=== PATIENT | female | born 1950 | race Caucasian/White ===

== ENCOUNTER 2024-09-23 10:14 | Emergency (ER) | payer MEDICARE ==
[~2024-09-23] VITALS: Ht 157.5 cm; Wt 63.5 kg
[2024-09-23 11:08] LABS: CREATININE 0.9 mg/dL (0.5-1.0); POTASSIUM 4.2 mmol/L (3.5-5.1)
[2024-09-23 11:19] LABS: BASOPHILS # (AUTO) 0.03 K/uL (0.00-0.20); BASOPHILS % (AUTO) 0.4 % (0.0-5.0); EOSINOPHILS # (AUTO) 0.07 K/uL (0.00-0.70); HEMATOCRIT 43.1 % (36-48); IMMATURE GRANULOCYTE ABSOLUTE 0.03 K/uL (0-1); LYMPHOCYTES # (AUTO) 1.9 K/uL (1.0-4.8); LYMPHOCYTES % (AUTO) 27.4 % (21.0-51.0); MEAN CORPUSCULAR HEMOGLOBIN 27.5 pg (27.0-33.0); MEAN CORPUSCULAR HGB CONC 32.7 g/dL (32.0-36.0); MEAN CORPUSCULAR VOLUME 84.2 fL (79-99); MONOCYTES # (AUTO) 0.4 K/uL (0.1-1.0); MONOCYTES % (AUTO) 6.1 % (3.0-13.0); NEUTROPHILS # (AUTO) 4.5 K/uL (1.8-7.7); NEUTROPHILS % (AUTO) 64.7 % (40.0-77.0); PLATELET COUNT (AUTO) 265 K/uL (130-400); RED BLOOD CELL COUNT(AUTO) 5.12 MIL/uL (4.00-5.50); WHITE BLOOD COUNT (AUTO) 6.9 K/uL (4.8-10.8)
[2024-09-23 11:42] VITALS: BP 163/84; TEMP 98.8; O2SAT 99
[2024-09-23 11:45] LABS: COVID19 (SARS ANTIGEN RAPID) PRESUMPTIVE NEGATIVE (NEGATIVE); INFLUENZA TYPE A Negative For Type A (NEGATIVE); INFLUENZA TYPE B Negative For Type B (NEGATIVE)
--- NOTE | 2024-09-23 12:29 | ERN ---
ED Note History of Present Illness Stated Complaint: CHEST CONGESTION, COUGHING Chief Complaint: Cough Time Seen by MD: 10:23 Dictation: 74-year-old female presents to the ED for evaluation of cough onset 4 days ago. Patient reports congestion, wheezing and chest pain, but denies any other associated symptoms at this time. Patient mentioned she was diagnosed with bronchitis on Saturday and treated at the urgent care with antibiotics and steroids, stating she was feeling better until last night when symptoms returned. Allergies: Coded Allergies: clarithromycin (Unverified Allergy, Unknown, NAUSEA/VOMITING, 09/23/24) erythromycin base (Unverified Allergy, Unknown, NAUSEA/VOMITING, 09/23/24) levofloxacin (Unverified Allergy, Unknown, HEADACHE, 09/23/24) moxifloxacin (Unverified Allergy, Unknown, HEADACHE, 09/23/24) sulfamethoxazole (Unverified Allergy, Unknown, ITCHING, 09/23/24) trimethoprim (Unverified Allergy, Unknown, ITCHING, 09/23/24) Past Medical History Past Medical History: Anxiety, Asthma, Bronchitis, Cancer, High Cholesterol, Hypertension, Pneumonia Surgical History: Review of System Dictation Constitutional: Negative for fever,chills, and weight loss Eyes: Negative for injury, pain,redness, and discharge ENT: Positive for nasal congestion Negative for injury,pain or swelling Cardiovascular: Positive for chest pain negative for palpitations, and edema Respiratory: Positive for cough and wheezing Negative for shortness of breath Abdomen/GI: Negative for abdominal pain, nausea, vomiting, diarrhea, and constipation Back: Negative for injury and pain : Negative for injury, bleeding and discharge MS/Extremity: Negative for injury and deformity Skin: Negative for rash, and discoloration Neuro: Negative for headache, weakness, numbness, tingling, and seizure Psych: Negative for suicide ideation, homicidal ideation, and hallucinations Initial Vital Sign VS Vital Signs Date Time Temp Pulse Resp B/P (MAP) Pulse Ox O2 Delivery O2 Flow Rate FiO2 09/23/24 11:07 98.1 85 20 163/84 99 Room Air 09/23/24 11:42 0 21 Physical Exam Dictation General: awake, alert, NAD Head/Face: Normocephalic, atraumatic Eyes: PERRL, EOMI, vision at baseline ENT: oral cavity clear, TMs clear, no signs of infection Neck: Trachea midline, supple, no nuchal rigidity Cardiovascular: RRR, normal S1/S2, No MRGs, no JVD Respiratory: CTAB, no respiratory distress, No rales or wheezes Abdomen: Soft, non-tender, non-distended, normal bowel sounds, no guarding or rebound. Skin: Warm, dry, normal turgor, no rash MS/Extremity: Pulses equal, no cyanosis, neurovascular intact, FROM Neuro: COAx4, GCS 15, strength 5/5, CN 2-12 intact, normal cerebellar exam, normal gait, Psych: Normal behavior, mood, and affect normal Results (Laboratory/Radiology) Laboratory/Radiology Laboratory Tests Test 09/23/24 10:43 09/23/24 11:15 White Blood Count 6.9 K/uL (4.8-10.8) Red Blood Count 5.12 MIL/uL (4.00-5.50) Hemoglobin 14.1 g/dL (12.0-16.0) Hematocrit 43.1 % (36-48) Mean Corpuscular Volume 84.2 fL (79-99) Mean Corpuscular Hemoglobin 27.5 pg (27.0-33.0) Mean Corpuscular Hemoglobin Concent 32.7 g/dL (32.0-36.0) Red Cell Distribution Width 15.0 % (11.0-15.5) Platelet Count 265 K/uL (130-400) Mean Platelet Volume 9.6 fL (7.5-10.5) Immature Granulocyte % (Auto) 0.4 % (0-1) Neutrophils (%) (Auto) 64.7 % (40.0-77.0) Lymphocytes (%) (Auto) 27.4 % (21.0-51.0) Monocytes (%) (Auto) 6.1 % (3.0-13.0) Eosinophils (%) (Auto) 1.0 % (0.0-8.0) Basophils (%) (Auto) 0.4 % (0.0-5.0) Neutrophils # (Auto) 4.5 K/uL (1.8-7.7) Lymphocytes # (Auto) 1.9 K/uL (1.0-4.8) Monocytes # (Auto) 0.4 K/uL (0.1-1.0) Eosinophils # (Auto) 0.07 K/uL (0.00-0.70) Basophils # (Auto) 0.03 K/uL (0.00-0.20) Absolute Immature Granulocyte (auto 0.03 K/uL (0-1) Nucleated Red Blood Cells 0.0 % (0.0-0.19) Sodium Level 141 mmol/L (136-145) Potassium Level 4.2 mmol/L (3.5-5.1) Chloride Level 101 mmol/L (101-111) Carbon Dioxide Level 32 mmol/L (21-32) Blood Urea Nitrogen 19 mg/dL (7-18) H Creatinine 0.9 mg/dL (0.5-1.0) Glomerular Filtration Rate Calc 68 mL/min (>90) Random Glucose 92 mg/dL (70-105) Total Calcium 8.8 mg/dL (8.5-10.1) Troponin I High Sensitivity 8 ng/L (4-50) Influenza Type A Antigen Negative For Type A Influenza Type B Antigen Negative For Type B SARS-CoV-2 Antigen (Rapid) PRESUMPTIVE NEGATIVE Labs Reviewed?: Yes EKG Comment: EKG 09/23/2024 time 11:55 a.m. ventricular rate 72, FL 118, QRS D 67, QT 409. Sinus rhythm, anteroseptal infarct, age indeterminate. No STEMI X-RAY Comment: REASON: cough ORDERING PHYSICIAN: DEVON DICK MD PROCEDURE: CXR1VW - CHEST 1VW CHEST 1VW REASON: cough COMPARISON: None. FINDINGS: Single view of the chest was obtained. Lungs are clear. Heart size is normal. There is no pulmonary vascular congestion. Mediastinum and bony thorax appear unremarkable. IMPRESSION: 1. Normal single view chest x-ray. DICTATED BY: ADRIANA JULIO MD DATE: 09/23/24 1420 ED Course ED Course Orders Procedure Category Date Status Time Influenza Type A & B, LAB 09/23/24 Complete Rapid 10:28 12 Lead Ekg Tracing- EKG 09/23/24 Logged Technical 10:28 Chest 1vw RAD 09/23/24 Resulted 10:28 Cbc With Differential LAB 09/23/24 Complete 10:28 Basic Metabolic Panel LAB 09/23/24 Complete 10:28 Troponin I High LAB 09/23/24 Complete Sensitivity 10:28 Covid19 (Sars Antigen LAB 09/23/24 Complete Rapid) 10:28 Sodium Chloride 3% PHA 09/23/24 Complete Inh (Sodium Chloride 13:00 Current Medications Medications (Trade) Dose Ordered Sig/Maria M Route PRN Reason Start Time Stop Time Status Last Admin Dose Admin Sodium Chloride (Sodium Chloride 3% Inh) 4 ml ONCE ONCE IH 09/23/24 13:00 09/23/24 13:01 DC 09/23/24 12:56 Vital Signs Date Time Temp Pulse Resp B/P (MAP) Pulse Ox O2 Delivery O2 Flow Rate FiO2 09/23/24 12:59 78 20 09/23/24 11:42 98.8 85 20 163/84 99 Room Air* 0 21 09/23/24 11:07 98.1 85 20 163/84 99 Room Air Medical Decision Making MDM MDM: Differential diagnosis: Pneumonia, bronchitis, URI Rationale: Tests considered and ordered secondary to shared decision making include: labs, ECG and radiology Risk of complication and/or morbidity or mortality of patient management: None Medications-Per medication reconciliation Need for hospitalization: Patient does meet criteria for hospitalization. Need for emergency major/minor surgery: No There are no social concerns with this patient. Prescription drug management Prescriptions will include symptomatic care I independently interpreted the test that were performed, results were reviewed by me and considered findings on radiology if ordered. DX & DISP Disposition: Discharge Departure Impression: Primary Impression: Acute URI Condition: Stable Referrals: DEANDRE CRESPO MD (PCP) DEVON DICK MD Sep 23, 2024 12:29
[2024-09-23] MEDS: SODIUM CHLORIDE 3% FOR INHALATION 4 ML/AMP VIAL.NEB IH ONE (12:56)
[2024-09-23 12:59] VITALS: PULSE 78; RESP 20
--- NOTE | 2024-09-23 14:24 | HMCIMG ---
CHEST 1VW REASON: cough COMPARISON: None. FINDINGS: Single view of the chest was obtained. Lungs are clear. Heart size is normal. There is no pulmonary vascular congestion. Mediastinum and bony thorax appear unremarkable. IMPRESSION: 1. Normal single view chest x-ray.
--- NOTE | 2024-09-24 07:39 | EKG ---
[facility] Test Date: 2024-09-23 Test Time: 11:55:08 Pat Name: VERONA WEIR Department: ED Room: Gender: F Information Security Manager: [id number] : 1950 Requested By: DEVON DICK Order Number: [id number] Reading MD: Toy Lara Measurements Intervals [place] Rate: 72 P: 55 NV: 118 QRS: 70 QRSD: 67 T: 57 QT: 409 QTc: 446 Interpretive Statements Sinus rhythm Normal No previous ECG available for comparison Electronically Signed On 09-24-2024 19:09:58 INVENTORY CONTROL CLERK by Toy Lara Please click the below link to view image of tracing.
== END 2024-09-23 14:52 | disposition home or self-care (01) ==
LOC: EDH 10:14
DX: J06.9 Acute upper respiratory infection, unspecified (principal); F41.9 Anxiety disorder, unspecified; J45.909 Unspecified asthma, uncomplicated; E78.00 Pure hypercholesterolemia, unspecified; I10 Essential (primary) hypertension; Z88.1 Allergy status to other antibiotic agents; Z88.2 Allergy status to sulfonamides; Z20.822 Contact with and (suspected) exposure to COVID-19
CPT/HCPCS: 36415; 71045; 80048; 84484; 85025; 87426; 87804; 93005; 94640; 99284